=== PATIENT | male | born 1990 | race Caucasian/White ===

== ENCOUNTER 2018-08-25 23:48 | Emergency (ER) | payer SELFPAY ==
[~2018-08-25] VITALS: Ht 177.8 cm; Wt 100.7 kg
[2018-08-26 00:01] VITALS: Ht 177.8 cm; Wt 100.7 kg
--- NOTE | 2018-08-26 02:56 | ERD ---
ER Documentation Chief Complaint Chief Complaint RIGHT GROIN PAIN X 2 WEEKS HPI 28-year-old male, presents the emergency department, complaining of right testicular pain for 2 weeks. The patient denies dysuria, no history of trauma, no abdominal pain ROS All systems reviewed and are negative except as per history of present illness. Medications Home Meds Active Scripts Ibuprofen* (Motrin*) 600 Mg Tab, 600 MG PO Q8, #15 TAB Prov:CATHY RHOADES MD 08/26/18 FmHx Family History: No diabetes, No coronary disease Physical Exam Vitals Vital Signs Date Temp Pulse Resp B/P (MAP) Pulse Ox O2 O2 Flow FiO2 Time Delivery Rate 08/26/18 97.3 78 20 156/80 99 00:01 (105) Physical Exam Const: No acute distress Head: Atraumatic Eyes: Normal Conjunctiva ENT: Normal External Ears, Nose and Mouth. Neck: Full range of motion. No meningismus. Resp: Clear to auscultation bilaterally Cardio: Regular rate and rhythm, no murmurs Abd: Soft, non tender, non distended. Normal bowel sounds Skin: No petechiae or rashes Back: No midline or flank tenderness Ext: No cyanosis, or edema Neur: Awake and alert Psych: Normal Mood and Affect Results 24 hrs Laboratory Tests Test 08/26/18 03:25 Bedside Urine pH (LAB) 7.0 Bedside Urine Protein (LAB) Negative Bedside Urine Glucose (UA) Negative Bedside Urine Ketones (LAB) Negative Bedside Urine Blood Negative Bedside Urine Nitrite (LAB) Negative Bedside Urine Leukocyte Esterase (L Negative Procedures/MDM During the medical encounter differential diagnosis like UTI, epididymitis, inguinal hernia, testicular torsion, varicocele, testicular mass were considered, therefore and a scrotal ultrasound and a were requested, see results above. Physical examination and clinical presentation consistent most likely with right testicular pain, low suspicion for acute scrotum. During the ED course the patient remained stable, no new complaints. Results and clinical impression discussed with the patient who agrees with management. The patient is stable to be treated outpatient and will be discharged home with a Rx for ibuprofen, some side effects of prescribed medications (headache, rash, nausea, vomiting, diarrhea, drowsiness, habituation, bleeding, hypertension, interactions with other medications) were reviewed. The patient was instructed to follow up with the primary care provider in the next 48h. If symptoms persist, worsen or new symptoms develop, then patient should return to the ED immediately. Instructions explained and given directly by me to the patient with acknowledgment and demonstrated understanding. Disclaimer: Inadvertent spelling and grammatical errors are likely due to EHR/dictation software use and do not reflect on the overall quality of patient care. Also, please note that the electronic time recorded on this note does not necessarily reflect the actual time of the patient encounter. Departure Diagnosis: Primary Impression: Right testicular pain Condition: Stable Additional Instructions: Thank you very much for allowing us to participate in your care. Your health and safety is our top priority at [facility]. Call your primary care doctor TOMORROW for an appointment during the next 2-4 days and bring all the information and medications prescribed. Have prescriptions filled and follow precisely the directions on the label. If the symptoms get worse and your provider is unavailable, return to the Emergency Department immediately. CATHY RHOADES MD Aug 26, 2018 02:56
[2018-08-26] MEDS ORDERED: IBUP-1542 PO (04:51)
[2018-08-26 05:00] VITALS: BP 127/75; PULSE 60; RESP 18
== END 2018-08-26 05:02 | disposition home or self-care (01) ==
LOC: FTE 23:48
DX: N50.811 Right testicular pain (principal)
CPT/HCPCS: 76870; 81003